=== PATIENT | male | born 1955 | race Caucasian/White ===

== ENCOUNTER → 2021-12-21 07:09 | Outpatient (CLI) | payer BC, SELFPAY ==
--- NOTE | ~2021-12-21 | MR_ITS ---
EXAMINATION: MR knee RT wo con DATE: 12/21/2021 07:41 INDICATION: Chronic right knee pain TECHNIQUE: Magnetic resonance imaging (MRI) of the right knee was performed without intravenous contr ast. Sequences included coronal PD-weighted FSE, coronal PD-weighted FS FSE, sagittal T2-weighted FS E, sagittal PD-weighted FS FSE and axial PD weighted fat saturated FSE. COMPARISON: None. FINDINGS: Medial compartment: Complex medial meniscal tear with longitudinal vertical component at the junction of the inner and mi ddle third of the meniscal body and with longitudinal horizontal component extending to the inferior articular surface at the posterior horn and posterior body. Large band of/near full-thickness chondra l ulceration without degenerative subchondral changes extending obliquely from anterolaterally to pos terior medially across the anterior weightbearing medial femoral condyle. Remaining cartilage in the medial compartment is normal. Lateral compartment: Small longitudinal horizontal tear extending to the articular surface near partial-thickness chondral fissuring along the central to posterior lateral tibial plateau. Partial-thickness cartilage loss in the medial side of the lateral tibial plateau along the shoulder the intercondylar eminence. The austyn e edge of the body of the lateral meniscus. Articular cartilage along the weightbearing lateral femor al condyle is normal. Patellofemoral compartment: Chondral ulceration and deep fissuring at the trochlear groove and immediately adjacent medial side o f the lateral trochlea. There is a small approximately 2-3 mm thick central subchondral osteophyte at the trochlear groove the surface which remains below the level of the adjacent articular cartilage. Mild partial-thickness cartilage loss with horizontally oriented band of superimposed partial-thickne ss chondral fissuring without degenerative subchondral changes at the central aspect of the lateral p atellar facet. Additional mild chondral fissuring along the inferior margin of the medial facet. Ligaments and tendons: Anterior and posterior cruciate ligaments are normal. The medial collateral ligament and fibular roderick ateral ligament complex are normal. Mild tendinopathy at the patellar insertions of the distal dylan ceps and proximal patellar tendons. Additional small enthesophytes along the superficial insertion of the distal quadriceps tendon. The visualized medial and lateral hamstring tendons as well as the kike otibial band are normal. Fluid: Large right knee joint effusion with mild peripheral synovitis at the suprapatellar pouch. No loose o steochondral bodies identified. Osseous/other: There is additional mild osteoarthritis at the proximal tibiofibular joint with mild partial-thicknes s cartilage loss and mild reticular edema-like signal change at the posterior superior aspect of the joint space. No fracture or pathologic marrow replacing process. IMPRESSION: 1. Medial and lateral meniscal tears. 2. 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 3. Large right knee joint effusion. 4. Mild osteoarthritis at the proximal tibiofibular articulation. Reviewed, dictated and finalized at location A. IMPRESSION: 1. Medial and lateral meniscal tears. 2. Mild tricompartmental osteoarthritis with regions of high-grade chondromalac ia at the trochlea and moderate grade chondromalacia at the patella, lateral ti bial plateau and weightbearing medial femoral condyle. 3. Large right knee joint effusion. 4. Mild osteoarthritis at the proximal tibiofibular articulation.
== END ==
PROVIDERS: PCP Internal Medicine; Visit Provider Orthopaedic Surgery
DX: M25.561 Pain in right knee (principal); G89.29 Other chronic pain; S83.241A Other tear of medial meniscus, current injury, right knee, initial encounter; S83.281A Other tear of lateral meniscus, current injury, right knee, initial encounter; M17.11 Unilateral primary osteoarthritis, right knee; M94.261 Chondromalacia, right knee; M25.461 Effusion, right knee
CPT/HCPCS: 73721

== ENCOUNTER 2024-04-20 08:10 | Outpatient (CLI) | payer BC, SELFPAY ==
--- NOTE | ~2024-04-20 | US_ITS ---
EXAMINATION: US aorta DATE: 04/20/2024 08:41 INDICATION: Thoracic aortic aneurysm TECHNIQUE: Grayscale, color Doppler, and pulsed Doppler images of the aorta and common iliac arteries were obtained. COMPARISON: None. FINDINGS: The proximal aorta measures 2.9 cm. The mid aorta measures 2.0 cm. The distal aorta measures 1.7 cm. The right common iliac artery measures 1.2 cm. The left common iliac artery measures 1.1 cm. IMPRESSION: 1. Normal caliber abdominal aorta. Reviewed, dictated and finalized at location A. FRAMER
== END 2024-04-20 08:11 | disposition home or self-care (01) ==
LOC: MICIMG 08:11
PROVIDERS: PCP Internal Medicine; Visit Provider Nurse Practitioner
DX: I71.20 Thoracic aortic aneurysm, without rupture, unspecified (principal)
CPT/HCPCS: 76775

== ENCOUNTER 2024-05-07 12:23 | Outpatient (CLI) | payer BC, SELFPAY ==
--- NOTE | 2024-05-07 12:55 | ECHO_ITS ---
Patient Info Name: Ashish Jeffrey Age: 69 years : 1955 Gender: Male Ht: 71 in Wt: 185 lbs BSA: 2.06 m2 HR: 77 bpm BP: 152 / 70 mmHg Heart Rhythm: Sinus Rhythm Technical Quality: Good Exam Date: 05/07/2024 1:01 PM Exam Location: Echo Lab Patient Status: Outpatient Admit Date: 05/07/2024 Staff Ordering Physician: Ashley Haile NP Gear Shaper Set Up Operator: Leslie Mason RDCS Attending Provider: Ashley Haile NP Referring Physician: Mic MARTINS; Exam Type: CA echo doppler color flow Study Info Complete two-dimensional, color flow and Doppler transthoracic echocardiogram is performed. Summary 1. Complete two-dimensional, color flow and Doppler transthoracic echocardiogram is performed. 2. Normal left ventricular function with an estimated ejection fraction of 55-60%. 3. Normal LV size and LV thickness. 4. Grade 1 diastolic dysfunction. 5. Aortic valve is trileaflet and has mild AI. 6. Measurements of the aorta that were visualized were within normal limits. 7. Mitral valve appears to collapse normally and there is only trace to mild MR. 8. No significant tricuspid valve regurgitation so estimation of the PA pressure right-sided pressure was not possible. 9. No pericardial effusion. 10. Left atrial size of 4.1 slightly enlarged. Left Ventricle Left ventricular chamber dimension is normal. Left ventricular systolic function is normal, estimated at 55-60%. There is no increased left ventricular wall thickness. The left ventricular diastolic function is grade I diastolic dysfunction. Right Ventricle Right ventricular chamber dimension is normal. Right ventricular systolic function is normal. Aortic Valve The aortic valve is trileaflet. There is mild aortic valve regurgitation. Mitral Valve The mitral valve has normal leaflets. There is trace mitral valve regurgitation. Tricuspid Valve The tricuspid valve leaflets are normal. There is no tricuspid valve regurgitation. Left Ventricular Outflow Tract Name Value Normal LVOT 2D LVOT Diameter 2.4 cm Pulmonic Valve Name Value Normal PV Doppler PV Peak Gradient 3 mmHg Mitral Valve Name Value Normal MV Doppler MV Peak Gradient 2 mmHg MV Mean Gradient 1 mmHg MV Decel Mcnairy 254 cm/s2 MV PHT 59 ms MV Area (PHT) 3.7 cm2 4.0-5.0 MV Diastolic Function MV E Peak Velocity 52 cm/s MV A Peak Velocity 64 cm/s MV E/A 0.8 MV Decel Time 204 ms MV Annular TDI MV E/e' (Septal) 9.4 <=8.0 MV E/e' (Lateral) 8.9 <=8.0 MV E/e' (Average) 9.1 Tricuspid Valve Name Value Normal TV Regurgitation Doppler TR Peak Velocity 240 cm/s TR Peak Gradient 17 mmHg Aortic Valve Name Value Normal AV Doppler AV Peak Velocity 116 cm/s AV Peak Gradient 5 mmHg AV Mean Gradient 3 mmHg AV VTI 20 cm AV Regurgitation 2D LVOT Area 4.6 cm2 AV Regurgitation Doppler AR Decel Time 3,576 ms AR Decel Mcnairy 140 cm/s2 AR PHT 1,037 ms Ventricles Name Value Normal LV Dimensions 2D/MM IVS Diastolic Thickness (2D) 0.9 cm 0.6-1.0 LVID Diastole (2D) 5.6 cm 4.2-5.8 LVIW Diastolic Thickness (2D) 1.0 cm 0.6-1.0 LVID Systole (2D) 4.1 cm 2.5-4.0 LVOT Diameter 2.4 cm LV Mass (2D Cubed) 204.71 g 88.00-224.00 LV Mass Index (2D Cubed) 99 g/m2 49-115 Relative Wall Thickness (2D) 0.36 LV Fractional Shortening/Ejection Fraction 2D/MM LV Fractional Shortening (2D) 27 % 25-43 LV EF (2D Teichradhaz) 52 % 52-72 LV Diastolic Volume (4C MOD) 166 ml LV EF (4C MOD) 52 % LV Diastolic Length (4C) 9.0 cm LV Systolic Length (4C) 8.2 cm LV Stroke Volume (4C MOD) 86 ml Atria Name Value Normal LA Dimensions LA Volume (4C A-L) 86 ml RA Dimensions RA Area (4C) 16.6 cm2 <=18.0 Report Signatures
== END 2024-05-07 12:24 | disposition home or self-care (01) ==
LOC: ANHCARD 12:24
PROVIDERS: PCP Internal Medicine; Visit Provider Nurse Practitioner
DX: I71.20 Thoracic aortic aneurysm, without rupture, unspecified (principal); I51.89 Other ill-defined heart diseases
CPT/HCPCS: 93306

== ENCOUNTER 2024-06-05 06:55 | Outpatient (CLI) | payer BC, SELFPAY ==
--- NOTE | ~2024-06-05 | CT_ITS ---
EXAMINATION: CTA chest DATE: 06/05/2024 7:57 PHOTOGRAPHERS' MODEL INDICATION: Aortic ectasia. TECHNIQUE: Computed tomographic angiography (CTA) of the chest was performed with 100 mL Omnipaque-35 0 intravenous contrast. The dose-length product was 439.32 mGy-cm. Maximum intensity projection 3D-re constructions of the aorta and other arteries were constructed by the technologist on a separate work station. Automated exposure control and iterative reconstruction technique were employed. COMPARISON: None. FINDINGS: There is mild ectasia of the ascending thoracic aorta measuring up to 3.6 cm near the aorti c root. No evidence for aneurysm or dissection. No thoracic lymphadenopathy. Study not optimized for evaluation of pulmonary embolism. No significant pleural or pericardial effusion. No endobronchial le sions. No focal airspace consolidation. No pneumothorax. The visualized aspects of the liver, spleen, pancreas, adrenal glands and right kidney are unremarkable. Gallbladder is present. There is a 4.2 c m left renal cyst. No thoracic lymphadenopathy. There is a calcified granuloma of the right lower lob e. IMPRESSION: 1. Mild ascending thoracic aortic ectasia without aneurysm or dissection. Reviewed, dictated and finalized at location A. OGRAPHERS' MODEL
--- OUTSIDE RECORDS SUMMARY | 2024-06-05 06:58 | XMS_ITS | Referral Summary ---
Author Organization [facility] Address [address] [place] [phone] Care Team Providers Care Insurance Compliance Analyst Name Role Phone Joseluis Griggs DO Primary Care Provider [phone]- [phone] Encounters Date Type Department Care Team Description 05/31/2024 1:15 PM CAN STERILIZER Office Visit [facility] Cardiology [address] [place] [address] [place] [phone] Blanche Wilde MD Essential hypertension (Primary Dx); Coronary artery calcification; Aortic ectasia, thoracic (CMS/HCC) (HCC) 05/30/2024 7:45 AM CAN STERILIZER Ancillary Procedure [facility] Medical [facility] Cardiology [address] [facility] [address] [place] [phone] Coronary artery calcification 05/29/2024 Telephone [facility] Cardiology [address] [facility] [address] [place] [phone] Blanche Wilde MD 05/27/2024 11:00 AM CAN STERILIZER Office Visit [facility] Cardiology [address] [facility] [address] [place] [phone] Blanche Wilde MD Coronary artery calcification (Primary Dx); Essential hypertension 05/10/2024 12:15 PM CAN STERILIZER - 05/10/2024 11:59 PM CAN STERILIZER Hospital Encounter [facility] Radiology [facility] [address] [place] [address] Michael Pierre MD Encounter for other specified surgical aftercare Discharge Disposition: Discharge to home or self care 05/10/2024 12:45 PM CAN STERILIZER Office Visit [facility] Orthopaedic Surgery [address] [facility] 6th [place] [address] [place] [address] Michael Pierre MD Encounter for other specified surgical aftercare (Primary Dx) 04/22/2024 9:05 AM CAN STERILIZER - 04/23/2024 10:00 AM CAN STERILIZER Hospital Encounter [facility] [address] [place] [address] Gustavo Alvarado MD Schneider, Andrew Michael, MD Primary osteoarthritis of right knee [M17.11] (Primary Dx) Discharge Disposition: Discharge to home or self care 04/22/2024 11:15 AM CAN STERILIZER - 04/22/2024 2:00 PM CAN STERILIZER Surgery [facility] Operating Room [address] [place] [address] Michael Pierre MD ARTHROPLASTY RIGHT TOTAL KNEE ? MITCH ROBOTIC ARM 04/22/2024 11:23 AM CAN STERILIZER Anesthesia Event [facility] Operating Room [address] [place] [address] Osmar Souza MD Schneider, Alexandra Marie, NP 04/18/2024 Telephone [facility] Orthopaedic Surgery [address] [place] [address] [address] [place] [phone] Rhonda Ivan RN Pre-op Instructions 04/18/2024 Orders Only [facility] Orthopaedic Surgery [address] [place] [address] 4 [address] [place] [phone] Michael Pierre MD Aftercare following right knee joint replacement surgery (Primary Dx); Acute pain of right knee 04/08/2024 Orders Only [facility] Surgery [address] [place] [address] 4 [address] [place] [phone] Michael Pierre MD 04/02/2024 8:45 AM CAN STERILIZER Lab [facility] [address] [place] [address] Chronic pain of right knee; Vitamin D deficiency 04/02/2024 9:56 AM CAN STERILIZER - 04/02/2024 11:59 PM CAN STERILIZER Hospital Encounter [facility] Imaging [address] [address] Chronic pain of right knee Discharge Disposition: Discharge to home or self care 04/02/2024 8:30 AM CAN STERILIZER Pre-Admission Testing [facility] Pre-Anesthesia Testing [id number] [place] [address] from Last 3 Months Allergies No known active allergies Medications amoxicillin-clavu lanate (AUGMENTIN) 875-125 mg per tablet Take 1 tablet by mouth 2 (two) times a day Active hyoscyamine (OSCIMIN) 0.125 mgIndications:Uri nary Incontinence Take 1 tablet (0.125 mg total) by mouth every 6 (six) hours as needed for cramping 60 tablet 2 12/06/19 Active Additional Information Patient not taking.Informant: Self, Reported on 05/31/2024 tiZANidine (ZANAFLEX) 4 mg tabletIndications :Right cervical radiculopathy TAKE 1 TABLET (4 MG TOTAL) BY MOUTH NIGHTLY NEEDED FOR MUSCLE SPASMS 90 tablet 1 11/14/19 24 Active Additional Information Patient not taking.Reported on 05/31/2024 omeprazole (PriLOSEC) 40 mg capsuleIndication s:Stress Ulcer Prophylaxis Take 1 capsule (40 mg total) by mouth every morning 03/01/20 Active cetirizine (ZyrTEC) 10 mg tabletIndications :Allergic Rhinitis Take 1 tablet (10 mg total) by mouth as needed for allergies Active diphenhydrAMINE 25 mg capsuleIndication s:allergies Take 1 tablet/capsule (25 mg total) by mouth nightly Active fluticasone propionate (FLONASE) 50 mcg/actuation nasal sprayIndications: Allergic Rhinitis Administer 1 spray into each nostril daily Active acetylcysteine 600 mg capsule Take 1 capsule by mouth every morning Active cholecalciferol (VITAMIN D-3) 2000 unit tabletIndications :Vitamin D Deficiency Take 1 tablet (2,000 Units total) by mouth every morning Active FIBER, DEXTRIN, ORALIndications:s upplement Take 1 tablet by mouth daily Active acetaminophen (TYLENOL) 500 mg tablet Take 2 tablets (1,000 mg total) by mouth every 8 (eight) hours 90 tablet 1 04/22/20 24 Active senna-docusate (Senna-S) 8.6-50 mg Take 2 tablets by mouth 2 (two) times a day 80 tablet 1 04/22/20 24 Active Additional Information Patient not taking.Reported on 05/31/2024 atorvastatin (LIPITOR) 10 mg tablet Take 1 tablet (10 mg total) by mouth nightly 04/15/20 24 Active testosterone cypionate, bulk, 100 % powder 0 03/01/20 24 Active traMADoL (ULTRAM) 50 mg tablet Take 1 tablet (50 mg total) by mouth every 8 (eight) hours as needed for pain 42 tablet 05/20/19 25 Active coenzyme Q10 10 mg capsule Take 1 capsule (10 mg total) by mouth daily Active krill oil 500 mg capsule Take by mouth Active amLODIPine (NORVASC) 2.5 mg tablet Take 1 tablet (2.5 mg total) by mouth daily 30 tablet 11 05/27/19 25 026 Active meloxicam (MOBIC) 7.5 mg tablet Take 1 tablet (7.5 mg total) by mouth daily 30 tablet 05/28/19 25 025 Active lisinopriL (PRINIVIL,ZESTRIL ) 20 mg tablet Take 1 tablet (20 mg total) by mouth daily 90 tablet 2 06/03/19 25 Active gabapentin (NEURONTIN) 300 mg capsule Take 1 capsule (300 mg total) by mouth nightly 30 capsule 06/04/19 25 Active aspirin 81 mg enteric coated tabletIndications :prevention of thrombosis Take 1 tablet (81 mg total) by mouth 2 (two) times a day 60 tablet 04/22/20 24 025 Discontin ued(Thera py completed ) meloxicam (MOBIC) 7.5 mg tablet Take 1 tablet (7.5 mg total) by mouth daily 30 tablet 04/22/20 24 025 Discontin ued(Reord er) oxyCODONE (ROXICODONE) 5 mg immediate release tabletIndications :Pain Take 1 tablet (5 mg total) by mouth every 4 (four) hours as needed for pain 30 tablet 12/26/ 025 Discontin ued(Reord er) traMADoL (ULTRAM) 50 mg tablet Take 1 tablet (50 mg total) by mouth every 8 (eight) hours as needed for pain 42 tablet 05/06/20 24 025 Discontin ued(Reord er) lisinopriL (PRINIVIL,ZESTRIL ) 10 mg tablet Take 2 tablets (20 mg total) by mouth daily 025 Discontin ued(Reord er) oxyCODONE (ROXICODONE) 5 mg immediate release tabletIndications :Pain Take 1 tablet (5 mg total) by mouth every 4 (four) hours as needed for pain 30 tablet 05/13/19 025 Discontin ued(Thera py completed ) gabapentin (NEURONTIN) 300 mg capsule Take 1 capsule (300 mg total) by mouth nightly 30 capsule 05/13/19 25 025 Discontin ued(Reord er) gabapentin (NEURONTIN) 300 mg capsule Take 1 capsule (300 mg total) by mouth nightly 30 capsule 05/31/19 25 025 Discontin ued(Reord er) Active Problems Problem Noted Date Diagnosed Date Aortic ectasia, thoracic (CMS/HCC) 05/31/2024 Coronary artery calcification 05/27/2024 Essential hypertension 05/27/2024 Knee osteoarthritis 04/22/2024 Chronic GERD 04/08/2024 Dysphagia 04/08/2024 Diverticulitis 10/25/2022 Assessment & Plan (10/25/2022 10:28 AM CDT): Per patient he is had multiple episodes of diverticulitis since 2014. He typically has left lower quadrant abdominal pain, fever, and constipation or diarrhea. Occasionally will have rectal bleeding. Symptoms resolved with Augmentin and Hyoscyamine given to him by his prior GI doctor. It appears that this is a clinical diagnosis of diverticulitis as there is no CT evidence of diverticulitis in her system. Last colonoscopy by Dr. Falcon in February 2019 notable for sigmoid diverticulosis and medium-sized internal hemorrhoids. Patient is currently asymptomatic. -obtain prior GI records -high-fiber diet -avoid seeds, nuts, and popcorn -discussed with the patient the need for colonoscopy given his multiple episodes of clinical diverticulitis that has resolved with antibiotics and last colonoscopy February 2019 as above; patient declined understanding the risk of missed colon cancer -also discussed referral to colorectal surgery given multiple episodes of diverticulitis, patient deferred Acquired trigger finger 08/05/2022 Overview (08/05/2022): Added automatically from request for surgery [id number] Complex tear of medial menis cus of right knee as current injury 06/20/2022 Overview (06/20/2022): Added automatically from request for surgery [id number] Complex tear of lateral meni scus of right knee as current injury 06/20/2022 Overview (06/20/2022): Added automatically from request for surgery [id number] Pain of finger 04/26/2016 Knee pain 03/10/2014 Pain of foot 07/31/2013 Arthralgia of hip 04/10/2013 Surgical follow-up care 04/10/2013 Social History Tobacco Use Types Packs/Day Years Used Date Smoking Tobacco: Never Smokeless Tobacco: Never Tobacco Cessation:Counseling Given: Not Answered Comments:Cigars rarely AUDIT-C Answer Date Recorded Q1: How often do you have a drink containing alcohol? 4 or more times a week 04/22/2024 Q2: How many drinks containi ng alcohol do you have on a typical day when you are drinking? 1 or 2 Q3: How often do you have si x or more drinks on one occasion? Never 04/22/2024 Personal Safety Answer Date Recorded Have you ever been in or are you currently in a harmful physical or emotional relationship or is someone making you feel afraid or unsafe? Denies 04/22/2024 Sex and Gender Information Value Date Recorded Sex Assigned at Not on file Legal Sex Male 2:50 AM CAN STERILIZER Gender Identity Not on file Sexual Orientation Not on file Last Filed Vital Signs Vital Sign Reading Time Taken Comments Blood Pressure 122/78 05/31/2024 12:52 PM CAN STERILIZER Pulse 76 05/31/2024 12:52 PM CAN STERILIZER Temperature 36.3 ??C (97.4 ??F) 04/23/2024 7:34 AM CS T Respiratory Rate 14 05/31/2024 12:52 PM CAN STERILIZER Oxygen Saturation 98% 05/31/2024 12:52 PM CAN STERILIZER Inhaled Oxygen Concentration - - Weight 84.4 kg (186 lb) 05/31/2024 12:52 PM CAN STERILIZER Height 180.3 cm (5' 11 ) 05/31/2024 12:52 PM CAN STERILIZER Body Mass Index 25.94 05/31/2024 12:52 PM CAN STERILIZER Plan of Treatment Not on file Medical Devices Implanted Type Area End Frazer Device Identifier Shelf Expiration Date Model / Serial / Lot Total Hip Kwabean Bilateral : Hip [employer] Triathlon Cruciate Retain Bead Knee Right 7 Component Femoral Pa 5517-F-702 - [id number] Implanted:Qty: 1 on 04/22/2024 at [facility] Right: Knee [employer] 03/02/2029 5517-F-702 / / [id number] [employer] Triathlon Tritanium Knee 7 Baseplate Tibial 5536-B-700 - [id number] Implanted:Qty: 1 on 04/22/2024 at [facility] Right: Knee [employer] 01/27/2029 5536-B-700 / / [id number] [employer] Insert Tibial Triathlon 7 H11mm Knee Bearing Condylar Stabilize Sterile 9300-E-289-E - [id number] Implanted:Qty: 1 on 04/22/2024 at [facility] Right: Knee [employer] 04/14/2027 5531-G-711 -[id number] / / [id number] Procedures Procedure Name Priority Date/Time Associated Diagnosis Comments NM MPI SPECT (REST AND/OR STRESS) MULTIPLE STUDIES Schedule Routine, Read Routine (OP Routine) 05/30/2024 9:50 AM CAN STERILIZER Coronary artery calcification POCT LIPID PANEL Routine 05/27/2024 11:21 AM CAN STERILIZER Essential hypertension XR KNEE RIGHT 4 OR MORE VIEWS Schedule Routine, Read Routine (OP Routine) 05/10/2024 12:40 PM CAN STERILIZER Encounter for other specified surgical aftercare EGFR Routine 04/22/2024 11:08 PM CAN STERILIZER HEMOGLOBIN AND HEMATOCRIT Routine 04/22/2024 11:08 PM CAN STERILIZER BASIC METABOLIC PANEL Routine 04/22/2024 11:08 PM CAN STERILIZER XR KNEE RIGHT 1 OR 2 VIEWS ED Urgent/IP Urgent 04/22/2024 1:38 PM CAN STERILIZER NH AN PROCEDURE PLACEHOLDER Routine 04/22/2024 11:36 AM CAN STERILIZER NH AN PROCEDURE PLACEHOLDER Routine 04/22/2024 11:35 AM CAN STERILIZER NH AN PROCEDURE PLACEHOLDER Routine 04/22/2024 11:34 AM CAN STERILIZER NH AN PROCEDURE PLACEHOLDER Routine 04/22/2024 11:32 AM CAN STERILIZER NH AN PROCEDURE PLACEHOLDER Routine 04/22/2024 11:30 AM CAN STERILIZER ARTHROPLASTY TOTAL KNEE ? MITCH ROBOTIC ARM 04/22/2024 11:26 AM CAN STERILIZER Chronic pain of right knee Special Needs Mitch Diana CT KNEE RIGHT WO CONTRAST Schedule Routine, Read Routine (OP Routine) 04/02/2024 10:02 AM CAN STERILIZER Chronic pain of right knee EGFR Routine 04/02/2024 9:53 AM CAN STERILIZER Chronic pain of right knee DIFFERENTIAL AUTO Routine 04/02/2024 9:5 3 AM CAN STERILIZER Chronic pain of right knee CBC WITH AUTO DIFFERENTIAL Routine 04/02/2024 9:53 AM CAN STERILIZER Chronic pain of right knee VITAMIN D 25 HYDROXY Routine 04/02/2024 9:53 AM CAN STERILIZER Chronic pain of right knee Vitamin D deficiency COMPREHENSIVE METABOLIC PANEL Routine 04/02/2024 9:53 AM CAN STERILIZER Chronic pain of right knee from Last 3 Months Results * NM MPI SPECT (Rest and/or Stress) Multiple Studies (05/30/2024 9:50 AM CAN STERILIZER) LV EF % CONS SCIMAGE Anatomical Region Laterality Modality Body N/A Nuclear Medicine 05/30/2024 8:30 AM CAN STERILIZER Narrative 05/30/2024 4:46 PM CAN STERILIZER [facility] Medical Group Cardiology [address], [place] [address] [address] [facility] [address], [place] [address] P:[phone] P:[phone] MPI Imaging Report Patient Name: ROD YATES H : 1955 Study Date: 05/30/2024 8:30:17 AM Gender: M Tech: R[facility]ER [facility] Location: [facility] Provider: BLANCHE WILDE ?Height(Cm): 180.3 BSA: ??Weight(Kg): 84.4 BMI: 25.96 ?Order Provider: BLANCHE WILDE - ?? PHYSICIAN: Referring Physician: Dr. Griggs. HCG Physician: Blanche Wilde M.D., F.A.C.C. Interpreting Physician: Christ Israel M.D.,F.A.C.C. Stress Supervision: Rosina Montoya M.D., F.A.C.C. ?? PROCEDURES: Pharmacologic SPECT Report: Myocardial perfusion imaging with Tc99M Sestamibi SPECT at rest and stress post regadenoson (Lexiscan) infusion. ?? INDICATIONS: Hypertension. Coronary Calcium on CT, High Cholesterol, and I25.10 Atherosclerotic heart disease of [place] coronary artery without angina pectoris. ?? FINDINGS: Procedural Findings: ??One day rest/stress was used. ??Tc99m Sestamibi injected IV at rest was 10.3 millicuries ??31.3 millicuries of Tc99M Sestamibi injected IV during Lexiscan stress ??Lexiscan 0.4mg given IV over 10 seconds with low level exercise: 1.2 MPH ??Patient had no symptoms during stress test. ??Baseline heart rate was 68 BPM ??Maximum Heart Rate Achieved was: 98 BPM ??Baseline blood pressure was 138/76 mmHg ??Post Stress Blood Pressure was 132/72 mmHg Termination: Protocol complete. Resting ECG: Sinus rhythm. Post ECG: No diagnostic ST changes. Arrhythmia: No arrhythmias seen. Perfusion Findings: A TID of 0.78 was automatically calculated. defect 1: Size is small. Severity is mild. Location of defect is in the basal inferior segment. Reversibility is not present, defect is fixed. Type of Type of defect is attenuation artifact. Resolved with prone imaging. LV Function: Global left ventricular function is normal. Left ventricular ejection fraction is 51 %. ?? CONCLUSIONS: Global left ventricular function is normal. Left ventricular ejection fraction is 51 %. Size is small. Severity is mild. Location of defect is in the basal inferior segment. Reversibility is not present, defect is fixed. Type of Type of defect is attenuation artifact. Resolved with prone imaging. Myocardial perfusion imaging is normal. Negative EKG portion of stress test. Electronically Signed By: Rosina Montoya MD 05/30/2024 1:21:26 PM CAN STERILIZER Electronically Signed By: Christ Israel MD, [facility] 05/30/2024 4:45:25 PM CAN STERILIZER Procedure Note Christ Israel MD - 05/30/2024 [facility] Medical [facility] Cardiology [address] [facility] [address], [place] [address] [address], [place] [address] P:[phone] P:[phone] MPI Imaging Report Patient Name: ROD YATES H : 1955 Study Date: 05/30/2024 8:30:17 AM Gender: M Tech: R[facility]ER [facility] Location: [facility] Provider: BLANCHE WILDE Height(Cm): 180.3 BSA: Weight(Kg): 84.4 BMI: 25.96 Order Provider: BLANCHE WILDE - PHYSICIAN: Referring Physician: Dr. Griggs. HCG Physician: Blanche Wilde M.D., RoxanneAShivaniCShivaniCShivani Interpreting Physician: Christ Israel M.D.,F.A.CShivaniCShivani Stress Supervision: Rosina Montoya M.D., FShivaniA.CShivaniCShivani PROCEDURES: Pharmacologic SPECT Report: Myocardial perfusion imaging with Tc99M Sestamibi SPECT at rest and stresspost regadenoson (Lexiscan) infusion. INDICATIONS: Hypertension. Coronary Calcium on CT, High Cholesterol, and I25.10Atherosclerotic heart disease of [place] coronary artery without angina pectoris. FINDINGS: Procedural Findings: One day rest/stress was used. Tc99m Sestamibi injected IV at rest was 10.3 millicuries 31.3 millicuries of Tc99M Sestamibi injected IV during Lexiscan stress Lexiscan 0.4mg given IV over 10 seconds with low level exercise: 1.2MPH Patient had no symptoms during stress test. Baseline heart rate was 68 BPM Maximum Heart Rate Achieved was: 98 BPM Baseline blood pressure was 138/76 mmHg Post Stress Blood Pressure was 132/72 mmHg Termination: Protocol complete. Resting ECG: Sinus rhythm. Post ECG: No diagnostic ST changes. Arrhythmia: No arrhythmias seen. Perfusion Findings: A TID of 0.78 was automatically calculated. defect 1: Size is small. Severity is mild. Location of defect is in the basalinferior segment. Reversibility is not present, defect is fixed. Type of Type of defect isattenuation artifact. Resolved with prone imaging. LV Function: Global left ventricular function is normal. Left ventricular ejectionfraction is 51 %. CONCLUSIONS: Global left ventricular function is normal. Left ventricular ejectionfraction is 51 %. Size is small. Severity is mild. Location of defect is in the basalinferior segment. Reversibility is not present, defect is fixed. Type of Type of defect isattenuation artifact. Resolved with prone imaging. Myocardial perfusion imaging is normal. Negative EKG portion of stress test. Electronically Signed By: Rosina Montoya MD 05/30/2024 1:21:26 PM CAN STERILIZER Electronically Signed By: Christ Israel MD, [facility] 05/30/2024 4:45:25 PM CAN STERILIZER us Blanche Wilde MD IMG NM PROCEDURES Fi nal Result * POCT lipid panel (05/27/2024 11:21 AM CAN STERILIZER) Cholesterol, POC 157 mg/dL Comment:GLU = 139 HDL, POC 60 mg/dL Triglycerides, POC 122 mg/dL LDL Cholesterol POC 73 mg/dL Chol/HDL Ratio, POC 1.2 Non-HDL Cholesterol, POC 98 mg/dL Cholesterol Total, POC 157 mg/dL Capillary blood 05/27/2024 1 1:21 AM CAN STERILIZER Blanche Wilde MD POINT OF CARE TEST O RDERABLES Final Result * XR Knee Right 4 or More Views (05/10/2024 12:40 PM CAN STERILIZER) Anatomical Region Laterality Modality Lower Extremities, Knee Right Computed Radiography 05/10/2024 12:4 4 PM CAN STERILIZER Impressions 05/10/2024 12:44 PM CAN STERILIZER 2 component right knee arthroplasty in unchanged, near anatomic position. Electronically signed by: Jasson Ross M.D. Narrative 05/10/2024 12:44 PM CAN STERILIZER EXAMINATION: XR KNEE RIGHT 4 OR MORE VIEWS HISTORY: Right knee arthroplasty follow-up COMPARISON: 04/22/2024 FINDINGS: ?? Postsurgical changes are again seen from right 2 component knee opacity in unchanged, near-anatomic position. ??The soft tissue gas is largely resolved. ??There is a persistent knee effusion and diffuse soft tissue swelling. ??No acute periprosthetic fracture. ??No component subsidence. ??There are bilateral hip resurfacing arthroplasties. ??Neutral lateral mechanical axis. Procedure Note Jasson Ross MD - 05/10/2024 EXAMINATION: XR KNEE RIGHT 4 OR MORE VIEWS HISTORY: Right knee arthroplasty follow-up COMPARISON: 04/22/2024 FINDINGS: Postsurgical changes are again seen from right 2 component knee opacity in unchanged, near-anatomic position. The soft tissue gas is largely resolved. There is a persistent knee effusion and diffuse soft tissue swelling. No acute periprosthetic fracture. No component subsidence. There are bilateral hip resurfacing arthroplasties. Neutral lateral mechanical axis. IMPRESSION: 2 component right knee arthroplasty in unchanged, near anatomic position. Electronically signed by: Jasson Ross M.D. us Michael Pierre MD IMG XR PROCEDURES Fi nal Result * eGFR (04/22/2024 11:08 PM CAN STERILIZER) Pathologist [facility] eGFR 82 >=60 mL/min/1. 73 m2 Comment: Interpretive Data Reference Interval Normal ?>/= 90 mL/min/1.73m2 Mildly decreased* ? 60 - 89 mL/min/1.73m2 Mildly to moderately decreased ?45 - 59 mL/min/1.73m2 Moderately to severely decreased ??30 - 44 mL/min/1.73m2 Severely decreased ?15 - 29 mL/min/1.73m2 Kidney Failure ?< 15 ??mL/min/1.73m2 *Relative to young adult level Estimated glomerular filtration rate is determined by the 2020 CKD-EPI equation recommended by the National Kidney Foundation (A Unifying Approach to GFR Estimation: Recommendations of the NKF-ASK Task Force on Reassessing the Inclusion of Race in Diagnosing Kidney Disease, JASN 2020). The CKD-EPI equation should not be used for patients with unstable renal function and has not been validated in children and those over 70. Current interpretive data was last reviewed 2021. Blood 04/22/2024 11:0 8 PM CAN STERILIZER 04/22/2024 11:08 PM CAN STERILIZER Francia Spear MD LAB BLOOD ORDERAB LES Final Result Performing Organization Address [facility] Co de Phone Number [facility] [id number] [facility] [employer] [place], [place] [phone] * (ABNORMAL) Hemoglobin and hematocrit (04/22/2024 11:08 PM CAN STERILIZER) [facility] Hgb 13.5 13.0 - 17.5 g/dL Hct 38.0(L) 38.9 - 50.3 % [facility] Blood 04/22/2024 11:0 8 PM CAN STERILIZER 04/22/2024 11:08 PM CAN STERILIZER Francia Spear MD LAB BLOOD ORDERAB LES Final Result Performing Organization Address [facility] Co de Phone Number [facility] [address] [facility] [employer] [place], [place] [phone] * (ABNORMAL) Basic metabolic panel (04/22/2024 11:08 PM CAN STERILIZER) Sodium 134(L) 135 - 145 mmol/L Potassium, pl 4.3 3.3 - 4.9 mmol/L [facility] Chloride 102 97 - 110 mmol/L [facility] CO2 21(L) 22 - 32 mmol/L [facility] Anion gap 11 2 - 15 mmol/L [facility] BUN 11 6 - 25 mg/dL [facility] Creatinine 1.00 0.80 - 1.30 mg/dL [facility] Glucose 177 70 - 199 mg/dL [facility] Comment: Interpretive Data Fasting glucose >/= 126 mg/dl is diagnostic for diabetes. ?? Fasting is defined as no caloric intake for at least 8 hours. Fasting glucose between 100 mg/dl to 125 mg/dl is diagnostic of prediabetes. In a patient with classic symptoms of hyperglycemia or hyperglycemic crisis, a random glucose >/= 200 mg/dl is diagnostic for diabetes. In the absence of unequivocal hyperglycemia, results should be confirmed by repeat testing. The classification and Diagnosis of Diabetes Diabetes Care 2021; 46: S19-S40. Current interpretive data was last revised 2022. Calcium 9.1 8.5 - 10.3 mg/dL [facility] Blood 04/22/2024 11:0 8 PM CAN STERILIZER 04/22/2024 11:08 PM CAN STERILIZER us Francia Spear MD LAB BLOOD ORDERAB LES Final Result [facility] [id number] [facility]. Department [place] [address] * XR Knee Right 1 or 2 View (04/22/2024 1:38 PM CAN STERILIZER) Anatomical Region Laterality Modality Lower Extremities, Knee Right Computed Radiography 04/22/2024 1:39 PM CAN STERILIZER Impressions 04/22/2024 1:39 PM CAN STERILIZER New right 2 component knee arthroplasty in expected position. Electronically signed by: Jasson Ross M.D. Narrative 04/22/2024 1:39 PM CAN STERILIZER EXAMINATION: XR KNEE RIGHT 1 OR 2 VIEWS HISTORY: post op COMPARISON: 04/02/2024 FINDINGS: ?? There is a new right 2 component knee arthroplasty in expected position. ??There is intra-articular and periarticular soft tissue gas. ??No acute fracture. Procedure Note Jasson Ross MD - 04/22/2024 EXAMINATION: XR KNEE RIGHT 1 OR 2 VIEWS HISTORY: post op COMPARISON: 04/02/2024 FINDINGS: There is a new right 2 component knee arthroplasty in expected position. There is intra-articular and periarticular soft tissue gas. No acute fracture. IMPRESSION: New right 2 component knee arthroplasty in expected position. Electronically signed by: Jasson Ross M.D. Francia Spear MD IMG XR PROCEDURES Final Result * NH AN PROCEDURE PLACEHOLDER (04/22/2024 11:36 AM CAN STERILIZER) Narrative Osmar Souza MD - 04/22/2024 11:36 AM CAN STERILIZER Osmar Souza MD ? 04/22/2024 ??2:55 PM Peripheral Block Patient location during procedure: pre-op holding Reason for block: post-op pain management per surgeon request Ultrasound image in chart or stored: yes Block type: single shot Laterality: right Block type: genicular nerve block Staff: Supervising provider: Osmar Souza MD Placed by: Resident: Aziza Goss MD Procedure prep: Preprocedure checklist: patient identified, procedure contraindications assessed, site marked, procedure consent, surgical consent, IV checked, risks, benefits and alternatives discussed, monitors and equipment checked and timeout performed Patient position: supine Procedure performed while patient: sedate with meaningful contact Monitoring: ECG, oximetry and blood pressure Supplemental O2: nasal cannula Prep solution: chlorhexidine/alcohol PPE: provider hat/mask, sterile gloves and sterile probe cover and gel Peripheral nerve block: Technique: ultrasound guided Needle type: insulated, short-bevel and echogenic Needle gauge: 20 G Needle length: 100 mm Injection assessment: injection made incrementally with constant monitoring, local visualized surrounding nerve on ultrasound, negative aspiration for heme, no paresthesias noted, normal resistance to injection and see flowsheet for medication details Assessment: Block success: full evaluation pending Events: patient tolerated procedure well with no complications Additional comments: (Superior Medial, Superior Lateral, Inferior Medial genicular nerves) us Osmar Souza MD ANESTHESIA ORDERABLES Edit ed Result - Final * NH AN PROCEDURE PLACEHOLDER (04/22/2024 11:35 AM CAN STERILIZER) Narrative Osmar Souza MD - 04/22/2024 11:35 AM CAN STERILIZER Osmar Souza MD ? 04/22/2024 ??2:41 PM Peripheral Block Patient location during procedure: pre-op holding Reason for block: post-op pain management per surgeon request Ultrasound image in chart or stored: yes Block type: single shot Laterality: right Block type: IPACK Staff: Supervising provider: Osmar Souza MD Placed by: Resident: Aziza Goss MD Procedure prep: Preprocedure checklist: patient identified, procedure contraindications assessed, site marked, procedure consent, surgical consent, IV checked, risks, benefits and alternatives discussed, monitors and equipment checked and timeout performed Patient position: supine Procedure performed while patient: sedate with meaningful contact Monitoring: ECG, oximetry and blood pressure Supplemental O2: nasal cannula Prep solution: chlorhexidine/alcohol PPE: provider hat/mask, sterile gloves and sterile probe cover and gel Peripheral nerve block: Technique: ultrasound guided Needle type: insulated, short-bevel and echogenic Needle gauge: 20 G Needle length: 100 mm Injection assessment: injection made incrementally with constant monitoring, local visualized surrounding nerve on ultrasound, negative aspiration for heme, no paresthesias noted, normal resistance to injection and see flowsheet for medication details Assessment: Block success: full evaluation pending Events: patient tolerated procedure well with no complications us Osmar Souza MD ANESTHESIA ORDERABLES Cortney l Result * NH AN PROCEDURE PLACEHOLDER (04/22/2024 11:34 AM CAN STERILIZER) Narrative Osmar Souza MD - 04/22/2024 11:34 AM CAN STERILIZER Osmar Souza MD ? 04/22/2024 ??2:41 PM Peripheral Block Patient location during procedure: pre-op holding Reason for block: post-op pain management per surgeon request Ultrasound image in chart or stored: yes Block type: single shot Laterality: right Block type: vastus intermedius nerve block Staff: Supervising provider: Osmar Souza MD Placed by: Resident: Aziza Goss MD Procedure prep: Preprocedure checklist: patient identified, procedure contraindications assessed, site marked, procedure consent, surgical consent, IV checked, risks, benefits and alternatives discussed, monitors and equipment checked and timeout performed Patient position: supine Procedure performed while patient: sedate with meaningful contact Monitoring: ECG, oximetry and blood pressure Supplemental O2: nasal cannula Prep solution: chlorhexidine/alcohol PPE: provider hat/mask, sterile gloves and sterile probe cover and gel Peripheral nerve block: Technique: ultrasound guided Needle type: short-bevel, echogenic and insulated Needle gauge: 20 G Needle length: 100 mm Injection assessment: injection made incrementally with constant monitoring, local visualized surrounding nerve on ultrasound, negative aspiration for heme, no paresthesias noted, normal resistance to injection and see flowsheet for medication details Assessment: Block success: full evaluation pending Events: patient tolerated procedure well with no complications us Osmar Souza MD ANESTHESIA ORDERABLES Edit ed Result - Final * NH AN PROCEDURE PLACEHOLDER (04/22/2024 11:32 AM CAN STERILIZER) Narrative Osmar Souza MD - 04/22/2024 11:32 AM CAN STERILIZER Osmar Souza MD ? 04/22/2024 ??2:41 PM Peripheral Block Patient location during procedure: pre-op holding Reason for block: post-op pain management per surgeon request Ultrasound image in chart or stored: yes Block type: single shot Laterality: right Block type: saphenous nerve block - subsartorial approach Staff: Supervising provider: Shauna Mijares MD Placed by: Resident: Aziza Goss MD Procedure prep: Preprocedure checklist: patient identified, procedure contraindications assessed, site marked, procedure consent, surgical consent, IV checked, risks, benefits and alternatives discussed, monitors and equipment checked and timeout performed Patient position: supine Procedure performed while patient: sedate with meaningful contact Monitoring: ECG, oximetry and blood pressure Supplemental O2: nasal cannula Prep solution: chlorhexidine/alcohol PPE: provider hat/mask, sterile gloves and sterile probe cover and gel Peripheral nerve block: Technique: ultrasound guided Needle type: insulated and short-bevel Needle gauge: 20 G Needle length: 100 mm Injection assessment: injection made incrementally with constant monitoring, local visualized surrounding nerve on ultrasound, negative aspiration for heme, no paresthesias noted, normal resistance to injection and see flowsheet for medication details Assessment: Block success: full evaluation pending Events: patient tolerated procedure well with no complications Osmar Souza MD ANESTHESIA ORDERABLES Edit ed Result - Final * NH AN PROCEDURE PLACEHOLDER (04/22/2024 11:30 AM CAN STERILIZER) Narrative Osmar Souza MD - 04/22/2024 11:30 AM CAN STERILIZER Osmar Souza MD ? 04/22/2024 ??2:40 PM Spinal Block Patient location: pre-op holding Reason for block: primary anesthetic Staff: Supervising provider: Shauna Mijares MD Placed by: Resident: Aziza Goss MD Procedure prep: Preprocedure checklist: patient identified, procedure contraindications assessed, site marked, procedure consent, surgical consent, IV checked, risks, benefits and alternatives discussed, monitors and equipment checked and timeout performed Patient position: sitting Procedure performed while patient: sedate with meaningful contact Monitoring: ECG, oximetry and blood pressure Supplemental O2: nasal cannula Prep solution: chlorhexadine/alcohol PPE: provider hat/mask, sterile gloves and sterile drape Skin infiltrated with lidocaine 1%: yes Spinal: Approach: midline Introducer used: yes Location: L3-4 Spinal injection: CSF demonstrated and no aspiration of heme Number of attempts: 1 Spinal Needle: Needle type: Lucy Aiden Needle gauge: 24 G Needle length: 9 cm Assessment: Sensory deficit - left: full eval pending Sensory deficit - right: full eval pending Events: patient tolerated procedure well with no complications Osmar Souza MD ANESTHESIA ORDERABLES Edit ed Result - Final * CT Knee Right WO Contrast (04/02/2024 10:02 AM CAN STERILIZER) Anatomical Region Laterality Modality Lower Extremities Right Computed Tomog cresencio 04/02/2024 1:51 PM CAN STERILIZER Impressions 04/02/2024 2:01 PM CAN STERILIZER 1. 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 Dictated by: Jules Basilio D.O. The radiology attending physician has personally reviewed this study, and had reviewed and/or edited this written report and agrees with it. Electronically signed by: Frederic Baldwin M.D. Narrative 04/02/2024 2:01 PM CAN STERILIZER EXAMINATION: CT KNEE RIGHT WO CONTRAST HISTORY: Right knee osteoarthritis TECHNIQUE: ??Transaxial computed tomographic images of the right knee were obtained without intravenous contrast according to the MITCH protocol. COMPARISON: Radiographs dated 11/21/2023 FINDINGS: ?? In the pelvis, there are bilateral [id number] resurfacing total hip arthroplasties in near-anatomic alignment. ??There is no fracture. The muscle bulk is normal. ??There are scattered areas of heterotopic ossification in the bilateral gluteal muscles and hamstring origins. The visualized pelvis demonstrates diverticulosis without evidence of diverticulitis. In the right knee, there is no acute fracture. ??There is moderate patellofemoral predominant tricompartmental osteoarthritis. ??There is a small joint effusion. ??The muscle bulk is normal. In the ankles, there is no acute fracture. Procedure Note Frederic Baldwin MD - 04/02/2024 EXAMINATION: CT KNEE RIGHT WO CONTRAST HISTORY: Right knee osteoarthritis TECHNIQUE: Transaxial computed tomographic images of the right knee were obtained without intravenous contrast according to the MITCH protocol. COMPARISON: Radiographs dated 11/21/2023 FINDINGS: In the pelvis, there are bilateral [id number] resurfacing total hip arthroplasties in near-anatomic alignment. There is no fracture. The muscle bulk is normal. There are scattered areas of heterotopic ossification in the bilateral gluteal muscles and hamstring origins. The visualized pelvis demonstrates diverticulosis without evidence of diverticulitis. In the right knee, there is no acute fracture. There is moderate patellofemoral predominant tricompartmental osteoarthritis. There is a small joint effusion. The muscle bulk is normal. In the ankles, there is no acute fracture. IMPRESSION: 1. 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 Dictated by: Jules Basilio D.O. The radiology attending physician has personally reviewed this study, and had reviewed and/or edited this written report and agrees with it. Electronically signed by: Frederic Baldwin M.D. us Gustavo Alvarado MD IMG CT PROCEDURES Final Res ult * eGFR (04/02/2024 9:53 AM CAN STERILIZER) eGFR 79 >=60 mL/min/1. 73 m2 Comment: Interpretive Data Reference Interval Normal ?>/= 90 mL/min/1.73m2 Mildly decreased* ? 60 - 89 mL/min/1.73m2 Mildly to moderately decreased ?45 - 59 mL/min/1.73m2 Moderately to severely decreased ??30 - 44 mL/min/1.73m2 Severely decreased ?15 - 29 mL/min/1.73m2 Kidney Failure ?< 15 ??mL/min/1.73m2 *Relative to young adult level Estimated glomerular filtration rate is determined by the 2020 CKD-EPI equation recommended by the National Kidney Foundation (A Unifying Approach to GFR Estimation: Recommendations of the NKF-ASK Task Force on Reassessing the Inclusion of Race in Diagnosing Kidney Disease, JASN 2020). The CKD-EPI equation should not be used for patients with unstable renal function and has not been validated in children and those over 70. Current interpretive data was last reviewed 2021. Blood 04/02/2024 9:53 AM CAN STERILIZER 04/02/2024 10:00 AM CAN STERILIZER us Gustavo Alvarado MD LAB BLOOD ORDERABLES Final Result [facility] [address] [facility]. [place] [address] * Differential, auto (04/02/2024 9:53 AM CAN STERILIZER) Neutrophil abs 2.2 1.5 - 6.5 K/cumm Imm gran abs 0.0 0.0 - 0.1 K/cumm [facility] Lymphocyte abs 1.3 0.8 - 3.3 K/cumm [facility] Monocyte abs 0.6 0.2 - 0.8 K/cumm [facility] Eosinophil abs 0.1 0.0 - 0.5 K/cumm [facility] Basophil abs 0.0 0.0 - 0.1 K/cumm [facility] Neutrophil pct 52.8 % [facility] Comment: Interpretive Data Percent cell count reference ranges are not reported, since discordance with absolute values may lead to misinterpretation of CBC data. Current Interpretive Data was last revised on 2017. Imm gran pct 0.2 % [facility] Comment: Interpretive Data Percent cell count reference ranges are not reported, since discordance with absolute values may lead to misinterpretation of CBC data. Current Interpretive Data was last revised on 2017. Lymphocyte pct 31.6 % [facility] Comment: Interpretive Data Percent cell count reference ranges are not reported, since discordance with absolute values may lead to misinterpretation of CBC data. Current Interpretive Data was last revised on 2017. Monocyte pct 13.0 % [facility] Comment: Interpretive Data Percent cell count reference ranges are not reported, since discordance with absolute values may lead to misinterpretation of CBC data. Current Interpretive Data was last revised on 2017. Eosinophil pct 1.7 % [facility] Comment: Interpretive Data Percent cell count reference ranges are not reported, since discordance with absolute values may lead to misinterpretation of CBC data. Current Interpretive Data was last revised on 2017. Basophil pct 0.7 % [facility] Comment: Interpretive Data Percent cell count reference ranges are not reported, since discordance with absolute values may lead to misinterpretation of CBC data. Current Interpretive Data was last revised on 2017. Blood 04/02/2024 9:53 AM CAN STERILIZER 04/02/2024 10:00 AM CAN STERILIZER us Gustavo Alvarado MD LAB BLOOD ORDERABLES Final Result [facility] [address] [facility] [place] [address] * (ABNORMAL) CBC with auto differential (04/02/2024 9:53 AM CAN STERILIZER) Pathologist [facility] WBC 4.2 3.8 - 9.9 K/cumm Hgb 16.0 13.0 - 17.5 g/dL [facility] Hct 46.8 38.9 - 50.3 % [facility] Plt 203 150 - 400 K/cumm [facility] MPV 10.8 9.1 - 12.3 fL [facility] RBC 4.80 4.30 - 5.80 M/cumm [facility] MCV 97.5(H) 81.3 - 96.4 fL [facility] MCH 33.3 27.1 - 33.3 pg [facility] MCHC 34.2 32.3 - 35.7 g/dL [facility] RDW CV 12.4 11.1 - 14.9 % [facility] RDW SD 44.6 35.7 - 48.1 fL [facility] NRBC abs 0.00 0.00 - 0.01 K/cumm [facility] Blood 04/02/2024 9:53 AM CAN STERILIZER 04/02/2024 10:00 AM CAN STERILIZER Gustavo Alvarado MD LAB BLOOD ORDERABLES Final Result Performing Organization Address [facility] Co de Phone Number [facility] [phone] [facility] [place] [address] * (ABNORMAL) Vitamin D 25 hydroxy (04/02/2024 9:53 AM CAN STERILIZER) [facility] Vitamin D 25-OH 95(H) 30 - 80 ng/mL Blood 04/02/2024 9:53 AM CAN STERILIZER 04/02/2024 10:00 AM CAN STERILIZER Gustavo Alvarado MD LAB BLOOD ORDERABLES Final Result Performing Organization Address [facility] Co de Phone Number [facility] [address] [employer]. Department of Laboratories [place] [phone] * Comprehensive metabolic panel (04/02/2024 9:53 AM CAN STERILIZER) Sodium 138 135 - 145 mmol/L Potassium, pl 4.4 3.3 - 4.9 mmol/L [facility] Chloride 101 97 - 110 mmol/L [facility] CO2 27 22 - 32 mmol/L [facility] Anion gap 10 2 - 15 mmol/L [facility] BUN 14 6 - 25 mg/dL [facility] Creatinine 1.04 0.80 - 1.30 mg/dL [facility] Glucose 86 70 - 199 mg/dL [facility] Comment: Interpretive Data Fasting glucose >/= 126 mg/dl is diagnostic for diabetes. ?? Fasting is defined as no caloric intake for at least 8 hours. Fasting glucose between 100 mg/dl to 125 mg/dl is diagnostic of prediabetes. In a patient with classic symptoms of hyperglycemia or hyperglycemic crisis, a random glucose >/= 200 mg/dl is diagnostic for diabetes. In the absence of unequivocal hyperglycemia, results should be confirmed by repeat testing. The classification and Diagnosis of Diabetes Diabetes Care 2021; 46: S19-S40. Current interpretive data was last revised 2022. Calcium 9.7 8.5 - 10.3 mg/dL [facility] Bilirubin, total 0.5 0.1 - 1.2 mg/dL [facility] Protein, pl 7.4 6.5 - 8.5 g/dL [facility] Albumin 4.7 3.5 - 5.0 g/dL [facility] Alk phos 67 40 - 130 Units/L [facility] ALT 30 7 - 55 Units/L [facility] AST 21 10 - 50 Units/L [facility] Blood 04/02/2024 9:53 AM CAN STERILIZER 04/02/2024 10:00 AM CAN STERILIZER us Gustavo Alvarado MD LAB BLOOD ORDERABLES Final Result [facility] [address] [facility]. [place] [address] from Last 3 Months Insurance [place] ACC[place] CHOICE [place] [employer] [place] [facility] Advance Directives For more information, please contact: [phone] * Full Code (Latest Code Status on File) Date Activated Date Inactivated Comments 04/22/2024 3:48 PM 04/23/2024 2:19 PM Care Teams Insurance Compliance Analyst Relationship Specialty Start Date End Date Joseluis Griggs DO PCP - General Internal Medicine 08/03/21
--- OUTSIDE RECORDS SUMMARY | 2024-06-05 06:58 | XMS_ITS | Encounter Summary ---
Author Organization [facility] Address [address] [place] [address] Care Team Providers Care It Service Technician Name Role Phone Joseluis Griggs DO Primary Care Provider [phone] Encounter Details Date Type Department Care Team (Late st Contact Info) Description 05/29/2024 Telephone [facility] Cardiology [address] [place] [address] Kwabena Wilde MD [address] [place] [id number] Social History Tobacco Use Types Packs/Day Years Used Date Smoking Tobacco: Never Assessed Cigars Smokeless Tobacco: Never Comments:Cigars rarely AUDIT-C Answer Date Recorded Q1: [...] on file Legal Sex Male 2:50 AM BUS TRANSPORTATION MANAGER Gender Identity Not on file Sexual Orientation Not on file documented as of this encounter Miscellaneous Notes * Telephone Encounter - Carley Hickey RN - 05/29/2024 11:55 AM BUS TRANSPORTATION MANAGER Advised pt that his medications are fine to take. TRANSPORTATION MANAGER * Telephone Encounter - Alan Oconnellnca - 05/29/2024 11:50 AM CST Pt states he takes hydrocodone and tramadol after midnight. Wants to know if that will be an issue since he is scheduled for a [place] stress test tomorrow. Contact: TRANSPORTATION MANAGER documented in this encounter Plan of Treatment Not on file documented as of this encounter Visit Diagnoses Not on filedocumented in this encounter Care Teams It Service Technician Relationship Specialty Start Date End Date Joseluis Griggs DO PCP - General Internal Medicine 08/03/21 documented as of this encounter
--- OUTSIDE RECORDS SUMMARY | 2024-06-05 06:58 | XMS_ITS | Clinical Summary ---
Author Organization [facility] Address [address] [place] [address]. [place] [address] [place] [address] Care Team Providers Care Cisco Network Architect Name Role Phone Joseluis Griggs DO Primary Care Provider [phone] Gutierrez Hong MD Unavailable [phone] Allergies No known active allergies Medications omeprazole (PRILOSEC) 40 MG capsule Take 1 capsule (40 mg total) by mouth daily. Active lisinopril (PRINIVIL) 10 MG tablet Take 1 tablet (10 mg total) by mouth daily. Active Active Problems Problem Noted Date Diagnosed Date Chronic GERD 04/08/2024 Dysphagia, unspecified type 04/08/2024 Encounters Date Type Department Care Team Description 04/11/2024 3:28 PM JAVA SYBASE DEVELOPER - 04/11/2024 11:59 PM [facility] Hospital Encounter [facility] [place] [address] Jethro Guillaume MD Discharge Disposition: Home or Self Care (Routine Discharge) 04/11/2024 Travel 04/08/2024 11:20 AM JAVA SYBASE DEVELOPER [facility] [address] [facility] [address] [facility] [place] [address] Aditya Carlson PA-C New Patient (New patient) 04/08/2024 Orders Only [facility] [address] [facility] [place] [phone] Keith Rangel MD 04/08/2024 Travel from Last 3 Months Social History Tobacco Use Types Packs/Day Years Used Date Smoking Tobacco: Never Passive Smoke Exposure: Never Smokeless Tobacco: Never Tobacco Cessation:Counseling Given: No Alcohol Use Standard Drinks/Week Comments Not Currently 0 (1 standard drink = 0.6 oz pur e alcohol) PHQ-2 Answer Date Recorded Patient Health Questionnaire-2 Score 0 04/08/2024 Sex and Gender Information Value Date Recorded Sex Assigned at Not on file Legal Sex Male 5:08 PM CDT Gender Identity Not on file Sexual Orientation Not on file Last Filed Vital Signs Vital Sign Reading Time Taken Comments Blood Pressure 156/92 04/08/2024 12:43 PM JAVA SYBASE DEVELOPER recheck manually Pulse 55 04/08/2024 11:34 AM JAVA SYBASE DEVELOPER Temperature 36.7 ??C (98 ??F) 04/08/2024 11: 34 AM JAVA SYBASE DEVELOPER Respiratory Rate 18 04/08/2024 11:3 4 AM JAVA SYBASE DEVELOPER Oxygen Saturation 98% 04/08/2024 11: 34 AM JAVA SYBASE DEVELOPER Inhaled Oxygen Concentration - - Weight 88.9 kg (196 lb) 04/08/2024 11:3 4 AM JAVA SYBASE DEVELOPER Height 180.3 cm (5' 11 ) 04/08/2024 11: 34 AM JAVA SYBASE DEVELOPER Body Mass Index 27.34 04/08/2024 11:34 AM JAVA SYBASE DEVELOPER Plan of Treatment Upcoming Encounters Date Type Department Care Team (Late st Contact Info) Description 08/29/2024 2:30 PM CDT Hospital Encounter [facility] [place] [address] Keith Rangel MD 3 [facility] [address] [place] [address] 08/29/2024 2:30 PM CDT - 08/29/2024 3:00 PM CDT Surgery [facility] [address] Keith Rangel MD [address] [address] EGD Scheduled Procedures Name Priority Associated Diagnoses Date/Ti me EGD Chronic GERD Dysphagia, unspecified type 08/29/2024 2:30 PM CDT Health Maintenance Due Date Last Done Comments Colorectal Cancer Screening Colonoscopy (10 Years) 1957 Hepatitis C 1975 DTaP, Tdap and Td Vaccines ( 1 - Tdap) 1976 Zoster Vaccines (1 of 2) 2007 Pneumococcal Vaccine: 65+ Years (1 of 1 - PCV) 2022 COVID-19 Vaccine ( - 2023-2 5 season) 2024 02/16/2021, 01/26/2021 Influenza Adult (#1) 2024 PHQ-2 (Physician [place]) 05/08/2024 04/08/2024 PHQ-2 (Physician [place]) 04/08/2025 04/08/2024 RSV Immunization or 60+ Years (1 - 1-dose 75+ series) 2032 Meningococcal B Vaccine Aged Out No l onger eligible based on patient's age to complete this topic Meningococcal Vaccine Aged Out No shelia lalito eligible based on patient's age to complete this topic RSV Immunizations Under 20 Months Aged Out No longer eligible b ased on patient's age to complete this topic Procedures Procedure Name Priority Date/Time Associated Diagnosis Comments CT HEART DIAG CALCIUM SCORE Routine 04/11/2024 4:02 PM JAVA SYBASE DEVELOPER Visit for screening from Last 3 Months Results * CT HEART DIAG CALCIUM SCORE (04/11/2024 4:02 PM JAVA SYBASE DEVELOPER) Anatomical Region Laterality Modality Computed Tomogra phy 04/11/2024 4:04 PM JAVA SYBASE DEVELOPER Impressions 04/11/2024 4:08 PM JAVA SYBASE DEVELOPER IMPRESSION: 1. Total calcium score of 273; ??54 %of similar patients have less coronary artery calcium. Coronary artery calcification is a specific marker for coronary atherosclerosis. The amount of calcification correlates with severity of coronary atherosclerosis. This is considered moderate plaque burden. ??Moderate nonobstructive coronary artery disease highly likely. ??Please consult your physician for further explanation and recommendations. 2. 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 ??Please consult physician for further recommendation. This examination is not to be considered a substitute for a clinical examination by a physician. ??Coronary calcium scoring is intended to be a risk assessment test for coronary artery disease, and the results of this examination should be taken into careful consideration by the patient's own physician in the context of other factors such as relevant history, physical examination, and any other indicated investigations. ??All reference calcium scores contained in this report were generated from Electron Beam Tomography, or an equivalent technology. ??Please bear this proviso in mind when reviewing this report 2. Referred By: JETHRO GUILLAUME Interpreted By: Malcolm Grayson MD, 04/11/2024 4:04 PM Narrative 04/11/2024 4:08 PM JAVA SYBASE DEVELOPER [address] [address] EXAMINATION: CARDIAC CT - CORONARY CALCIUM CT EXAM DATE/TIME: 04/11/2024 3:47 PM REASON FOR EXAM: ??screening ?? COMPARISON: None HISTORY: ??69-year old male for coronary artery disease risk assessment. TECHNIQUE: Multislice helical CT images of the proximal coronary arteries with a computer generated calcification score. ??A dose lowering technique was used for this procedure, which may include, but is not limited to, dose reduction technique, automated exposure control, the use of iterative reconstruction, and ALARA (As Low As Reasonably Achievable) / Image Gently techniques. FINDINGS: AGATSTON SCORE: Left main: 0 ?LAD: 271 Circumflex: 0 ?Right coronary: 1.8 ?? Total Score: 273 ? The total calcium score is 273. This places the patient into the 55% in comparison to a group of patient's asymptomatic for coronary artery disease with the same age and gender. This means that 54% of men at age 67 have calcium scores lower than the patient. Refer to the printed report for the graph demonstrating the population risk stratification for asymptomatic men. The amount of coronary artery calcification correlates with the severity of coronary atherosclerosis and the probability of future significant event. Calcification is not site specific for stenosis and does not identify non-calcified atherosclerotic plaque, but rather indicates the extent of atherosclerosis in the coronary arteries overall. The score may be used as an indicator for risk factor modification or additional cardiac testing. Significant change in calcium score over time may be indicative of subsequent disease development or useful as a benchmark to assess preventative programs. ADDITIONAL FINDINGS: The The heart size is grossly normal. The cardiac valves are without definite calcification. The visualized thoracic aorta is is ectatic and possibly aneurysmal measuring 4 cm. No suspicious lung nodule, mass, consolidation. Visible upper abdomen is unremarkable. No suspicious osteolytic or osteoblastic lesions. Procedure Note Malcolm Grayson MD - 04/11/[address] [address] EXAMINATION: CARDIAC CT - CORONARY CALCIUM CT EXAM DATE/TIME: 04/11/2024 3:47 PM REASON FOR EXAM: screening COMPARISON: None HISTORY: 69-year old male for coronary artery disease risk assessment. TECHNIQUE: Multislice helical CT images of the proximal coronary arterieswith a computer generated calcification score. A dose lowering techniquewas used for this procedure, which may include, but is not limited to,dose reduction technique, automated exposure control, the use of iterativereconstruction, and ALARA (As Low As Reasonably Achievable) / Image Gentlytechniques. FINDINGS: AGATSTON SCORE: Left main: 0 LAD: 271 Circumflex: 0 Right coronary: 1.8 Total Score: 273 The total calcium score is 273. This places the patient into the 55% incomparison to a group of patient's asymptomatic for coronary arterydisease with the same age and gender. This means that 54% of men at age 67have calcium scores lower than the patient. Refer to the printed reportfor the graph demonstrating the population risk stratification forasymptomatic men. The amount of coronary artery calcification correlates with the severityof coronary atherosclerosis and the probability of future significantevent. Calcification is not site specific for stenosis and does not identify non- calcifiedatherosclerotic plaque, but rather indicates the extent of atherosclerosisin the coronary arteries overall. The score may be used as an indicator for risk factor modification oradditional cardiac testing. Significant change in calcium score over timemay be indicative of subsequent disease development or useful as a benchmark to assess preventativeprograms. ADDITIONAL FINDINGS: The The heart size is grossly normal. The cardiacvalves are without definite calcification. The visualized thoracic aortais is ectatic and possibly aneurysmal measuring 4 cm. No suspicious lung nodule, mass, consolidation. Visible upper abdomen isunremarkable. No suspicious osteolytic or osteoblastic lesions. IMPRESSION: 1. Total calcium score of 273; 54 %of similar patients have less coronaryartery calcium. Coronary artery calcification is a specific marker for coronaryatherosclerosis. The amount of calcification correlates with severity ofcoronary atherosclerosis. This is considered moderate plaque burden.Moderate nonobstructive coronary artery disease highly likely. Pleaseconsult your physician for further explanation and recommendations. 2. 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 This examination is not to be considered a substitute for a clinicalexamination by a physician. Coronary calcium scoring is intended to be arisk assessment test for coronary artery disease, and the results of thisexamination should be taken into careful consideration by the patient'sown physician in the context of other factors such as relevant history,physical examination, and any other indicated investigations. Allreference calcium scores contained in this report were generated fromElectron Beam Tomography, or an equivalent technology. Please bear thisproviso in mind when reviewing this report 2. Referred By: JETHRO GUILLAUME Interpreted By: Malcolm Grayson MD, 04/11/2024 4:04 PM us Jethro Guillaume MD CT Final Res ult from Last 3 Months Insurance [facility] Care Teams Cisco Network Architect Relationship Specialty Start Date End Date Joseluis Griggs DO [address] [place] [address] PCP - General INTERNAL MEDICINE 05/13/19 Gutierrez Hong MD [address] [place] [address] Referring Physician [facility] 02/15/24
--- OUTSIDE RECORDS SUMMARY | 2024-06-05 06:58 | XMS_ITS | Continuity of Care Document ---
Author Organization [facility] Address [address] [place] [address] [address] [place] [address] Phone Care Team Providers Care Grinder Needle Tip Name Role Phone Peter Olson MD Unavailable Unavailable Allergies, Adverse Reactions, Alerts Substance Reaction Status Criticality No Known Allergies Active No Inform ation Procedures Procedure Date OFFICE/OUTPATIENT VISIT, [facility] Advance Directives Directive Yes / No Effective Date File Name No Information Encounters Encounter Description Practice Location Reason(s) For Visit Diagnoses Date Provider Providers Copied on Encounter OFFICE/OUTPA TIENT VISIT, [facility], [address] [place], [place] [address]TE [facility], [place], [place], [id number], tel:[phone] [facility] pain (chief complaint) headaches (chief complaint) Ocular pain, right eyeVitreous degeneration, bilateralOther chorioretinal scars, bilateralAge-r elated nuclear cataract, bilateral [id number] [place] [address], [address], [place], [place], [facility], [place]. tel:[phone] Referring Provider: Peter Sarmiento, [id number] [place] [address] [address], [place], [place], [facility]. tel:[phone] Family History Family Member Type Diagnosis Age At Onset No Information Payers Payer name Insurance type Covered green party ID Authorcurta mike(s) [facility] [id number] Social History Type Description Quantity Date Captured Comments Alcohol Use Details Unknown Caffeine Use Details Unknown Tobacco Use Status No Information Smoking Status Never smoker Non-Smoking Tobacco Use Details : No Details Available : No Details Available Sex Male Chief Complaint And Reason For Visit From encounter dated '04/24/2017 08:30'. pain (chief complaint). Description: The patient is present for evaluation of pain in the right eye. It started about 6 month(s) ago. The symptom is frequent. The condition is limiting patient's ability to read. headaches (chief complaint). Description: The patient is present for evaluation of headaches in theright eye. It started about 6 month(s) ago. It affects distance vision. The symptom is constant. The condition is limiting patient's ability to read at the computer, states H/O retinal tear repiar OU with Dr. Mckeon, last repair was in the OD this past September and he states he has been having pain and discomfort ever since, patient states less light enters OD then OS and feels he may still have blood in the vitreous as per Dr. Mckeon at last OV patient needed another laser treatment and patient deferred, here today for second opinion, states using AT'S BID OU with mild improvement. MAC OCT ordered today Plan Of Treatment Date Type Action Status No Information History Of Present Illness Encounter Date Complaint History Of Prese nt Illness pain The patient is p resent for evaluation of pain in the right eye. It started about 6 month(s) ago. The symptom is frequent. The condition is limiting patient's ability to read. headaches The patient is p resent for evaluation of headaches in the right eye. It started about 6 month(s) ago. It affects distance vision. The symptom is constant. The condition is limiting patient's ability to read at the computer, states H/O retinal tear repiar OU with Dr. Mckeon, last repair was in the OD this past September and he states he has been having pain and discomfort ever since, patient states less light enters OD then OS and feels he may still have blood in the vitreous as per Dr. Mckeon at last OV patient needed another laser treatment and patient deferred, here today for second opinion, states using AT'S BID OU with mild improvement. MAC OCT ordered today Instructions Date Instruction Additional Infor mation Impression/Plan - Th ere is no evidence of retinal pathology. All signs and risks of retinal detachment and tears were discussed in detail. Patient instructed to call the office immediately if any symptoms noted. Educational materials provided:Flashers/floaters. Related to Vitreous degeneration, bilateral Impression/Plan - s/ p Laser scars OU. will continue to monitor.Patient is followed by Dr. 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 Related to Ocular pain, right eye Impression/Plan - No treatment currently recommended. The patient will monitor vision changes and contact us with any decrease in vision. Related to Age-related nuclear cataract, bilateral Follow up - RTO 1 year for comp exam Related to Vitreous degeneration, bilateral Assessments Type Assessment Date impression Ocular pain, right eye: H57.11. OD. assessment Ocular pain, right eye 17 assessment Vitreous degeneration, bilateral impression Vitreous degeneration, bilateral : H43.813. OU. impression Other chorioretinal scars, bilat eral: H31.093. OU. assessment Other chorioretinal scars, bilat eral impression Age-related nuclear cataract, bi lateral: H25.13. OU. assessment Age-related nuclear cataract, bi lateral
--- OUTSIDE RECORDS SUMMARY | 2024-06-05 06:58 | XMS_ITS | CONTINUITY OF CARE DOCUMENT ---
Author Name bernadette fleming Address Unknown Organization [facility] Address [address] [facility] [address] [place] [address] Phone [phone] Care Team Providers Care Infection Prevention Coordinator Name Role Phone Anshu Tim MD Unavailable Anshu Tim MD Unavailable [phone] INSURANCE PROVIDERS Payer name Policy type / Coverage type Lynda red alliance party ID [facility] [id number]
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
[2024-06-05 07:15] LABS: Estimated Glomerular Filt Rate > 60
== END 2024-06-05 06:56 | disposition home or self-care (01) ==
PROVIDERS: PCP Internal Medicine; Visit Provider Internal Medicine Cardiovascular Disease
DX: I77.810 Thoracic aortic ectasia (principal)
CPT/HCPCS: 71275; Q9967

== ENCOUNTER 2024-07-11 10:09 | Outpatient (CLI) | payer BC, SELFPAY ==
--- NOTE | ~2024-07-11 | MR_ITS ---
EXAMINATION: MR shoulder RT wo con DATE: 07/11/2024 10:48 INDICATION: Right shoulder pain TECHNIQUE: Magnetic resonance imaging (MRI) of the right shoulder was performed without intravenous c ontrast. Sequences included axial PD-weighted FS FSE, coronal oblique PD-weighted FS FSE, coronal obl ique T2-weighted FS FSE, sagittal PD-weighted FS FSE, and sagittal T1-weighted SE. COMPARISON: Right shoulder radiographs dated 09/28/2023 FINDINGS: Coracoacromial arch: The acromion undersurface is flat in morphology (type I). Small anterior subacromial spur at the acro mial insertion of the normal coracoacromial ligament. Moderate acromioclavicular osteoarthritis with prominent hypertrophic osteophytes in the lateral head of the clavicle small amount of heterotopic ca psular ossification. Rotator cuff: Mild tendinopathy with complete full-thickness tear of the supraspinatus and infraspinatus tendons wi th 4.5 cm medial retraction of the supraspinatus tear margin. The infraspinatus portion of the tear i s likely chronic with moderate fatty atrophy of the intraspinous muscle belly and with heterotopic os sification along the retracted tear margin. The supraspinatus portion of the tear may be more recent with no evident associated muscular atrophy. The teres minor tendon is normal. Mild subscapularis ten dinopathy without tear. Biceps tendon, glenoid labrum and glenohumeral cartilage: Severe tendinopathy without evident tear centered at the junction of the intra-articular and extra-ar ticular portions of the long head biceps tendon. There is a tear of the 5:00-6 5 position of the infe rior glenoid labrum. Her moderate size marginal osteophytes replacing the labral tissue at the 6:00- o'clock position of the posterior inferior glenoid. Mild partial-thickness cartilage loss with smooth chondral surface along the inferomedial aspect of the humeral head. Fluid: Moderate-sized glenoid humeral joint effusion extending through the full-thickness rotator cuff tear into the subacromial/subdeltoid bursa and the subcoracoid bursa. No loose osteochondral bodies. Bones: Mild cephalad subluxation of the humeral head with respect to the glenoid with secondary mild narrowi ng of the subacromial space with fluid filling the 2 mm space between the cartilage at the apex of th e humeral head from the inferior cortical surface of the acromion. No fracture or pathologic marrow r eplacing process. IMPRESSION: 1. Complete full-thickness tear of the supraspinatus and infraspinatus tendons, the latter likely chr onic with moderate associated fatty atrophy and some heterotopic ossicles along the retracted infrasp inatus tear margin. 2. Mild glenohumeral osteoarthritis with tear at the inferior glenoid labrum and glenoid marginal ost eophytes replacing portions of the posterior inferior labrum. 2. Severe tendinopathy without definitive tear of the long head biceps tendon. 4. Moderate acromioclavicular osteoarthritis. Reviewed, dictated and finalized at location L. [place] COORDINATOR IMPRESSION: 1. Complete full-thickness tear of the supraspinatus and infraspinatus tendons, the latter likely chronic with moderate associated fatty atrophy and some hete rotopic ossicles along the retracted infraspinatus tear margin. 2. Mild glenohumeral osteoarthritis with tear at the inferior glenoid labrum an d glenoid marginal osteophytes replacing portions of the posterior inferior lab rum. 2. Severe tendinopathy without definitive tear of the long head biceps tendon. 4. Moderate acromioclavicular osteoarthritis.
== END 2024-07-11 10:10 | disposition home or self-care (01) ==
LOC: MICIMG 10:11
PROVIDERS: PCP Internal Medicine; Visit Provider Nurse Practitioner Family
DX: S46.111A Strain of muscle, fascia and tendon of long head of biceps, right arm, initial encounter (principal); X58.XXXA Exposure to other specified factors, initial encounter; S43.491A Other sprain of right shoulder joint, initial encounter; M62.511 Muscle wasting and atrophy, not elsewhere classified, right shoulder; M19.011 Primary osteoarthritis, right shoulder
CPT/HCPCS: 73221